=== PATIENT | male | born 1955 | race Caucasian/White ===

== ENCOUNTER 2019-09-18 02:30 | Outpatient (CLI) | payer OTHER, SELFPAY ==
[2019-09-18 23:05] LABS: SARS-CoV-2 RNA PCR Negative
== END 2019-09-18 02:31 | disposition home or self-care (01) ==
LOC: ANHCOVIDDT 02:30
PROVIDERS: PCP Internal Medicine; Visit Provider Internal Medicine Gastroenterology
DX: Z01.812 Encounter for preprocedural laboratory examination (principal); Z11.59 Encounter for screening for other viral diseases
CPT/HCPCS: 87635; C9803; U0003

== ENCOUNTER 2019-09-21 00:55 | Day surgery (SDC) | payer OTHER, SELFPAY ==
[2019-09-13 12:25] VITALS: BMI 21.5
[2019-09-21 11:57] VITALS: BP 120/81; PULSE 48; RESP 16; TEMP 36.3; O2SAT 100; BMI 21.9
--- NOTE | 2019-09-21 11:57 | WPDANESEPPF ---
Anes - Initial Pre Proc Eval Procedure: Operation Date: 09/21/19 12:45 Proposed Procedures p Esophagogastroduodenoscopy - Steve Anglin MD Date/Time: 09/21/19 11:57 Surgeon: Steve Anglin MD Pre Op Diagnosis: GERD Patient Data Age: 64 Gender: M Height: 1.8 m Weight: 70 kg Allergies Allergy/AdvReac Type Severity Reaction Status Date / Time No Known Allergies Allergy Verified 09/21/19 11:55 Home Medications Medication Instructions Recorded Confirmed Type antiarthritic combination no.2 900 900 mg PO DAILY 08/30/19 09/13/19 History mg tablet loratadine 10 mg tablet 10 mg PO DAILY 08/30/19 09/13/19 History metronidazole 0.75 % topical cream 1 applic TOPICAL BID 08/30/19 09/13/19 History yovnajjr-zgv-ewlfx acid 300 1 tablet PO DAILY 08/30/19 09/13/19 History mcg-lycopene 600 mcg-lutein 300 mcg tablet omega-3 fatty acids 1,000 mg 1,000 mg PO DAILY 08/30/19 09/13/19 History capsule pantoprazole 40 mg tablet,delayed 40 mg PO QAM 08/30/19 09/13/19 History release Patient hx anesthesia problems: none Family hx anesthesia problems: none [facility] Past Medical History Medical History (Updated 08/30/19 @ 11:55 by Steve Anglin MD) Abnormal heart rhythm Arthritis GERD (gastroesophageal reflux disease) Headache Hyperlipemia Migraine Osteoarthritis Osteoarthritis of knee Social History Social History Smoking status: Never smoker Alcohol intake: never Anes - Eval Final PreProcedure Day of Procedure 09/21/19 11:57 Patient weight: normal Heart: regular rate and rhythm Lungs: clear to auscultation and normal air movement Airway: Mallampati scale class II Neurological: alert and oriented Last oral intake: >/= 8 hours ASA classification: II Emergent: no Anesthetic plan: proceed Anesthesia type and monitoring: general GIVS and standard monitoring Informed Consent: The patient's anesthetic plan and its attendant risks and benefits were discussed with the patient/family/POA. Questions were solicited and answers provided to the satisfaction of the patient/family/POA.
[2019-09-21] MEDS: LACTATED RINGERS 1,000 ML 150 ML IV CONT (11:59)
--- NOTE | 2019-09-21 12:17 | WPDHPUPDATE1 ---
History and Physical Update Update Date/Time: 09/21/19 12:17 History and Physical has been reviewed, including an updated exam of the patient. There are NO changes in the patient's condition. Risks, benefits, and alternatives have been discussed and questions answered. Patient agrees to proceed with procedure.
[2019-09-21 12:20] VITALS: BP 106/69; PULSE 47; RESP 13; O2SAT 100
[2019-09-21 12:30] VITALS: BP 121/73; PULSE 42; RESP 20; O2SAT 100
[2019-09-21 12:40] VITALS: BP 121/75; PULSE 45; RESP 20; O2SAT 100
== END 2019-09-21 13:00 | disposition home or self-care (01) ==
PROVIDERS: PCP Internal Medicine; Visit Provider Internal Medicine Gastroenterology
PROC: 0DJ08ZZ Inspection of Upper Intestinal Tract, Via Natural or Artificial Opening Endoscopic (ICD-10-PCS; CPT 43235; principal; 2019-09-21 12:45)
DX: K21.0 Gastro-esophageal reflux disease with esophagitis (principal); K29.50 Unspecified chronic gastritis without bleeding; E78.5 Hyperlipidemia, unspecified
CPT/HCPCS: 43239; 88305; J2704; J7120

== ENCOUNTER → 2020-04-15 06:26 | Outpatient (CLI) | payer OTHER, SELFPAY ==
[2020-04-15 19:10] LABS: SARS-CoV-2 RNA PCR Negative
== END ==
PROVIDERS: PCP Internal Medicine; Visit Provider Internal Medicine Gastroenterology
DX: Z01.812 Encounter for preprocedural laboratory examination (principal); Z20.822 Contact with and (suspected) exposure to COVID-19
CPT/HCPCS: C9803; U0003; U0005

== ENCOUNTER 2020-04-18 00:51 | Day surgery (SDC) | payer SELFPAY ==
[2020-03-27 10:19] VITALS: BMI 21.5
[2020-04-18 06:52] VITALS: BP 122/71; PULSE 54; RESP 16; TEMP 36.3; O2SAT 98; BMI 21.5
[2020-04-18] MEDS: LACTATED RINGERS 1,000 ML 150 ML IV CONT (07:03)
--- NOTE | 2020-04-18 07:22 | WPDANESEPPF ---
Anes - Initial Pre Proc Eval Procedure: Operation Date: 04/18/20 08:00 Proposed Procedures p Esophagogastroduodenoscopy - Steve Anglin MD Date/Time: 04/18/20 07:22 Surgeon: Steve Anglin MD Pre Op Diagnosis: Eosinophilic Esophagilis Patient Data Age: 64 Gender: M Height: 5 ft 11 in Weight: 70 kg Last Vital Signs Temp 36.3 C L 04/18/20 06:52 Pulse 54 L 04/18/20 06:52 Resp 16 04/18/20 06:52 BP 122/71 04/18/20 06:52 Pulse Ox 98 04/18/20 06:52 Allergies Allergy/AdvReac Type Severity Reaction Status Date / Time No Known Allergies Allergy Verified 04/18/20 06:50 Home Medications Medication Instructions Recorded Confirmed Type antiarthritic combination no.2 900 900 mg PO DAILY 08/30/19 03/27/20 History mg tablet metronidazole 0.75 % topical cream 1 applic TOPICAL BID 08/30/19 03/27/20 History qkckxvww-otf-vrazt acid 300 1 tablet PO DAILY 08/30/19 03/27/20 History mcg-lycopene 600 mcg-lutein 300 mcg tablet omega-3 fatty acids 1,000 mg 1,000 mg PO DAILY 08/30/19 03/27/20 History capsule pantoprazole 40 mg tablet,delayed 40 mg PO BID 08/30/19 03/27/20 History release fluticasone propionate 110 2 puff INHALATION Q12H #12 gm 11/04/19 03/27/20 Rx mcg/actuation HFA aerosol inhaler Patient hx anesthesia problems: none Family hx anesthesia problems: none [facility] Past Medical History Medical History Abnormal heart rhythm Arthritis Eosinophilic esophagitis GERD (gastroesophageal reflux disease) Headache Hyperlipemia Migraine Osteoarthritis Osteoarthritis of knee Family History Family History Father Colon cancer Social History Social History Smoking status: Never smoker Alcohol intake: never Substance use type: does not use Living arrangements: with family Anes - Eval Final PreProcedure Day of Procedure 04/18/20 07:22 Patient weight: normal Heart: regular rate and rhythm Lungs: clear to auscultation Airway: Mallampati scale class II Neurological: alert and oriented Last oral intake: >/= 8 hours ASA classification: II Emergent: no Anesthetic plan: proceed Anesthesia type and monitoring: general GIVS and standard monitoring Informed Consent: The patient's anesthetic plan and its attendant risks and benefits were discussed with the patient/family/POA. Questions were solicited and answers provided to the satisfaction of the patient/family/POA.
--- NOTE | 2020-04-18 07:53 | PM.HPGS ---
History of Present Illness History of Present Illness Consent: Risks, benefits, and alternatives have been discussed and questions answered. Patient agrees to proceed with procedure. Chief complaint: Eosinophilic Esophagilis Narrative: Dougie Montgomery is a 64 year old male with history of EoE, symptoms better with ppi and flovent. Recently he went to see human resources associate and was told that allergy test was negative. Review of Systems Constitutional: Constitutional: Denies headache(s) and Denies weakness Eyes: Eyes: Denies blurry vision ENT: Reports Normal hearing present, Denies headache(s) and Denies neck pain Cardiovascular: Cardiovascular: Denies chest pain and Denies dyspnea Respiratory: Respiratory: Denies dyspnea Gastrointestinal: Gastrointestinal: Reports no additional gastrointestinal complaints Genitourinary: Genitourinary: Denies dysuria Musculoskeletal: Musculoskeletal: Denies neck pain Integumentary/Breasts: Skin/Breast: Denies dry skin Neurologic: Reports Normal hearing present, Denies headache(s) and Denies weakness Psychiatric: Psychiatric: Denies anxiety Endocrine: Endocrine: Denies change in body appearance Hematologic/Lymphatic: Hematologic/Lymphatic: Denies easy bleeding Allergic/Immunologic: Allergic/Immunologic: Denies urticaria PMF[facility] Past Medical History Medical History Abnormal heart rhythm Arthritis Eosinophilic esophagitis GERD (gastroesophageal reflux disease) Headache Hyperlipemia Migraine Osteoarthritis Osteoarthritis of knee Family History Family History Father Colon cancer Social History Social History Smoking status: Never smoker Alcohol intake: never Substance use type: does not use Living arrangements: with family Meds Home Medications and Allergies Home Medications Medication Instructions Recorded Confirmed Type antiarthritic combination no.2 900 900 mg PO DAILY 08/30/19 03/27/20 History mg tablet metronidazole 0.75 % topical cream 1 applic TOPICAL BID 08/30/19 03/27/20 History aszugewq-pfn-yqnmu acid 300 1 tablet PO DAILY 08/30/19 03/27/20 History mcg-lycopene 600 mcg-lutein 300 mcg tablet omega-3 fatty acids 1,000 mg 1,000 mg PO DAILY 08/30/19 03/27/20 History capsule pantoprazole 40 mg tablet,delayed 40 mg PO BID 08/30/19 03/27/20 History release fluticasone propionate 110 2 puff INHALATION Q12H #12 gm 11/04/19 03/27/20 Rx mcg/actuation HFA aerosol inhaler Allergies Allergy/AdvReac Type Severity Reaction Status Date / Time No Known Allergies Allergy Verified 04/18/20 06:50 Vital Signs Vital Signs - 24 hr 04/18/20 06:52 Temperature 97.3 F L Pulse Rate 54 L Respiratory Rate 16 Blood Pressure 122/71 Pulse Oximetry 98 Exam Const: General: comfortable and no acute distress HENMT: General nose exam: Normal nares present Eyes: General: appearance normal, both eyes and all related structures Neck: Neck: no JVD Resp: Auscultation: clear to auscultation bilaterally Cardio: Rate: regular rate Rhythm: regular rhythm GI: Inspection: non-distended GI Palp: Yes Soft to palpation Skin: General skin exam: normal color Neuro: General: gait normal Speech: normal speech Extrem: General: normal to inspection Psych: Mental Status: mental status grossly normal Assessment and Plan Assessment and plan (1) Eosinophilic esophagitis: Code(s): K20.0 - Eosinophilic esophagitis Status: Acute Assessment and Plan: on medical treatment, EGD again with more biopsies to reassess (2) GERD (gastroesophageal reflux disease): Code(s): K21.9 - Gastro-esophageal reflux disease without esophagitis Status: Acute
[2020-04-18 08:10] VITALS: BP 96/58; PULSE 52; RESP 18; O2SAT 100
[2020-04-18 08:20] VITALS: BP 113/69; PULSE 51; RESP 22; O2SAT 100
[2020-04-18 08:30] VITALS: BP 111/72; PULSE 45; RESP 12; O2SAT 100
== END 2020-04-18 08:35 | disposition home or self-care (01) ==
PROVIDERS: PCP Internal Medicine; Visit Provider Internal Medicine Gastroenterology
PROC: 0DJ08ZZ Inspection of Upper Intestinal Tract, Via Natural or Artificial Opening Endoscopic (ICD-10-PCS; CPT 43235; principal; 2020-04-18 08:00)
DX: Z09 Encounter for follow-up examination after completed treatment for conditions other than malignant neoplasm (principal); K29.50 Unspecified chronic gastritis without bleeding; K21.9 Gastro-esophageal reflux disease without esophagitis; Z87.19 Personal history of other diseases of the digestive system; E78.5 Hyperlipidemia, unspecified; M19.90 Unspecified osteoarthritis, unspecified site
CPT/HCPCS: 43239; 88305; J2704; J7120